=== PATIENT | male | born 1965 | race Caucasian/White ===

== ENCOUNTER → 2017-01-10 | Outpatient (CLI) | payer OTHER ==
[~2017-01-10] MED LIST: ANDROGEL1.62% TP; DAILY VITAMIN1 EAC1 PO; FISH OIL1000 MG PO; GARCINIA CAMBO1 EACH PO; HYDROCODONE/ACE1 TA5 PO; LEVITRA10 MG PO; MILK THISTLE500 MG PO
[2017-01-10 10:07] LABS: AMPHETAMINES/METAMPHETAMINES NEGATIVE ng/mL (<1000)
[2017-01-14 18:35] LABS: Opiates Negative (Cutoff=100)
== END ==
LOC: LAB 09:36
PROVIDERS: Anesthesiology
DX: Z79.899 Other long term (current) drug therapy (principal)